=== PATIENT | female | born 1945 | race Caucasian/White ===

== ENCOUNTER 2017-02-10 08:41 | Outpatient (CLI) | payer MEDICARE, OTHER ==
[~2017-02-10] VITALS: Ht 167.6 cm; Wt 75.7 kg
[~2017-02-10 08:41] MED LIST: ASPI1TAB PO; GLUCTAB6 PO; IBUP100SUS PO; IBUPOTC PO; LISI5TAB PO; VITA100067 PO
[2017-02-10] MEDS ORDERED: PRAV40TA2 PO (09:23)
[2017-02-10] MEDS ORDERED: LIDOCAINE 2% INJ 100 MG/5 ML SDV (FOR ANES.) As Ordered ONE (09:50)
[2017-02-10] MEDS ORDERED: PROPOFOL 200 MG/20 ML VIAL As Ordered ONE ×2 (09:50→09:51)
--- NOTE | 2017-02-10 10:02 | ROOR ---
Patient Name: Juliet Gibbs Procedure Date: 02/10/2017 9:44 AM Date of : 1945 Age: 71 Room: [facility] Gender: Female Note Status: Finalized Procedure: Total Colonoscopy to Cecum Indications: Colon cancer screening in patient at increased risk: Colorectal cancer in mother, Last colonoscopy: 2011 Providers: Shaka Bailey MD Referring MD: NADIRA NDIAYE MD Requesting Provider: Medicines: Monitored Anesthesia Care Complications: No immediate complications. Procedure: Pre-Anesthesia Assessment: - The heart rate, respiratory rate, oxygen saturations, blood pressure, adequacy of pulmonary ventilation, and response to care were monitored throughout the procedure. The Colonoscope was introduced through the anus and advanced to the cecum, identified by appendiceal orifice and ileocecal valve. The colonoscopy was performed without difficulty. The patient tolerated the procedure well. The quality of the bowel preparation was excellent. Findings: The perianal and digital rectal examinations were normal. Non-bleeding internal hemorrhoids were found during retroflexion. The hemorrhoids were small and Grade I (internal hemorrhoids that do not prolapse). No other significant abnormalities were identified in a careful examination of the remainder of the colon. The exam was otherwise without abnormality on direct and retroflexion views. Impression: - Non-bleeding internal hemorrhoids. - The examination was otherwise normal on direct and retroflexion views. - No specimens collected. - The exam was otherwise normal to the cecum. Recommendation: - Patient has a contact number available for emergencies. The signs and symptoms of potential delayed complications were discussed with the patient. Return to normal activities tomorrow. Written discharge instructions were provided to the patient. - High fiber diet. - Discharge patient to home. - Continue present medications. - Repeat colonoscopy for symptoms only. - Return to referring physician. - The findings and recommendations were discussed with the patient's family. Shaka Bailey MD Shaka Bailey MD 02/10/2017 10:02:39 AM This report has been signed electronically. Number of Addenda: 0 Note Initiated On: 02/10/2017 9:44 AM Estimated Blood Loss: Estimated blood loss: none.
[2017-02-10 10:20] VITALS: BP 104/69
[2017-02-10] MEDS ORDERED: NS 1,000 ML IV ONE (10:30)
== END 2017-02-10 10:24 | disposition home or self-care (01) ==
LOC: M OPP 08:41
PROVIDERS: ATTEND Internal Medicine Gastroenterology
DX: Z12.11 Encounter for screening for malignant neoplasm of colon (principal); Z80.0 Family history of malignant neoplasm of digestive organs; K64.0 First degree hemorrhoids; I10 Essential (primary) hypertension; E78.5 Hyperlipidemia, unspecified; M19.90 Unspecified osteoarthritis, unspecified site; M54.9 Dorsalgia, unspecified; F41.9 Anxiety disorder, unspecified; Z78.0 Asymptomatic menopausal state; N39.3 Stress incontinence (female) (male); Z88.8 Allergy status to other drugs, medicaments and biological substances; Z88.5 Allergy status to narcotic agent; Z91.041 Radiographic dye allergy status; Z91.048 Other nonmedicinal substance allergy status; Z91.010 Allergy to peanuts; Z79.82 Long term (current) use of aspirin; Z79.899 Other long term (current) drug therapy; Z80.8 Family history of malignant neoplasm of other organs or systems; Z87.891 Personal history of nicotine dependence

== ENCOUNTER → 2017-03-05 | Outpatient (REF) | payer MEDICARE, OTHER ==
[~2017-03-05] MED LIST changes: +PRAV40TA2 PO
== END ==
LOC: M SFHCWAGY 08:49
PROVIDERS: ATTEND Nurse Practitioner Women's Health
DX: Z12.4 Encounter for screening for malignant neoplasm of cervix (principal); N88.8 Other specified noninflammatory disorders of cervix uteri
CPT/HCPCS: G0101; G0123

== ENCOUNTER → 2018-03-15 | Outpatient (REF) | payer MEDICARE, OTHER ==
[2018-03-17 14:22] LABS: HPV HYBRID CAPTURE II Negative (Negative)
== END ==
LOC: M SFHCWAGY 09:11
DX: Z12.4 Encounter for screening for malignant neoplasm of cervix (principal); Z86.19 Personal history of other infectious and parasitic diseases; Z98.890 Other specified postprocedural states
CPT/HCPCS: G0123

== ENCOUNTER 2019-02-19 18:33 | Emergency (ER) | payer MEDICARE, OTHER ==
[~2019-02-19] VITALS: Ht 167.6 cm; Wt 78.4 kg
[~2019-02-19 18:33] MED LIST changes: +IBUP100S44 PO; -IBUP100SUS PO
[2019-02-19 18:34] VITALS: BP 147/74
[2019-02-19] MEDS ORDERED: DERMABOND TOPICAL SKIN ADHESIVE TOP ONE (19:00)
--- NOTE | 2019-02-19 19:58 | REP ---
Right forearm: Two views. History: Injury in a fall. Findings: Two views of the right forearm show a subtle nondisplaced fracture of the radial head proximally. There is distortion of the anterior fat pad at the elbow consistent with hemarthrosis. No distal forearm fracture is seen. No ulnar fracture is appreciated. Impression: Proximal radial head fracture nondisplaced with evidence of positive fat pad sign at the elbow. Electronically Signed by Castro Cowan MD 02/19/2019 07:50 P
--- NOTE | 2019-02-19 20:01 | REPVR ---
PROCEDURE INFORMATION: Exam: CT Head Without Contrast Exam date and time: 02/19/2019 7:02 PM Clinical history: 73 years old, female; Injury or trauma; Fall; Initial encounter; Blunt trauma (contusions or hematomas); Consciousness not specified TECHNIQUE: Imaging protocol: Computed tomography of the head without contrast. Radiation optimization: All CT scans at this facility use at least one of these dose optimization techniques: automated exposure control; mA and/or kV adjustment per patient size (includes targeted exams where dose is matched to clinical indication); or iterative reconstruction. COMPARISON: CT Head without contrast 06/27/2013 12:10 PM FINDINGS: Brain: Global cerebral atrophy is consistent with patient's age. Decreased attenuation within the white matter tracts of both cerebral hemispheres is nonspecific but typically seen with small vessel disease/chronic white matter ischemic changes of aging. No intracranial hemorrhage or mass effect. Ventricles: Unremarkable. No ventriculomegaly. Bones/joints: Unremarkable. No acute fracture. Sinuses: Visualized sinuses are unremarkable. No fluid levels. Mastoid air cells: Visualized mastoid air cells are well aerated. Soft tissues: Unremarkable. IMPRESSION: No acute abnormality. Electronically signed by: Fili Feliciano On 02/19/2019 20:00:48 PM
== END 2019-02-19 20:34 | disposition home or self-care (01) ==
LOC: M ED 18:33
DX: S52.124A Nondisplaced fracture of head of right radius, initial encounter for closed fracture (principal); S01.81XA Laceration without foreign body of other part of head, initial encounter; W18.39XA Other fall on same level, initial encounter; Y92.410 Unspecified street and highway as the place of occurrence of the external cause; I10 Essential (primary) hypertension; Z79.899 Other long term (current) drug therapy; Z79.82 Long term (current) use of aspirin; Z88.5 Allergy status to narcotic agent; Z88.8 Allergy status to other drugs, medicaments and biological substances; Z91.018 Allergy to other foods; Z91.041 Radiographic dye allergy status; Z91.048 Other nonmedicinal substance allergy status

== ENCOUNTER → 2019-03-17 | Outpatient (REF) | payer MEDICARE, OTHER ==
[2019-03-21 14:07] LABS: HPV HYBRID CAPTURE II Negative (Negative)
== END ==
LOC: M SFHCWAGY 08:34
PROVIDERS: ATTEND Nurse Practitioner Women's Health
DX: Z12.4 Encounter for screening for malignant neoplasm of cervix (principal); Z98.890 Other specified postprocedural states; N95.8 Other specified menopausal and perimenopausal disorders
CPT/HCPCS: 87624; G0101; G0123

== ENCOUNTER → 2020-03-19 | Outpatient (REF) | payer MEDICARE, OTHER | LOC: M SFHCWAGY 10:04 | PROVIDERS: ATTEND Nurse Practitioner Women's Health | DX: Z12.4 Encounter for screening for malignant neoplasm of cervix (principal); N95.8 Other specified menopausal and perimenopausal disorders | CPT/HCPCS: 87624; G0101; G0123 ==

== ENCOUNTER → 2021-03-20 | Outpatient (REF) | payer MEDICARE, OTHER | LOC: M SFHCWAGY 13:02 | PROVIDERS: ATTEND Nurse Practitioner Women's Health | DX: Z12.4 Encounter for screening for malignant neoplasm of cervix (principal); N95.8 Other specified menopausal and perimenopausal disorders | CPT/HCPCS: G0101; G0123 ==

== ENCOUNTER → 2021-10-10 | Outpatient (REF) | payer MEDICARE, OTHER ==
[2021-10-10 15:44] LABS: ALBUMIN 4.1 GM/DL (3.2-5.2); BILIRUBIN,TOTAL 0.4 MG/DL (0.2-1.0); CALCIUM LEVEL 10.2 MG/DL (8.8-10.2); CREATININE FOR GFR 0.97 MG/DL (0.55-1.30); FREE T4 0.99 NG/DL (0.76-1.46); GLOMERULAR FILTRATION RATE 59.4 (>39); POTASSIUM SERUM 3.8 MEQ/L (3.5-5.1); THYROID STIMULATING HORMONE 2.28 uIU/ML (0.358-3.740); TOTAL PROTEIN 7.5 GM/DL (6.4-8.2)
== END ==
LOC: M SFHCADAM 07:58
PROVIDERS: ATTEND Family Medicine
DX: I11.9 Hypertensive heart disease without heart failure (principal); E78.5 Hyperlipidemia, unspecified

== ENCOUNTER → 2021-10-21 | Outpatient (REF) | payer MEDICARE, OTHER ==
[2021-10-21 13:43] LABS: CHOLESTEROL RISK RATIO 3.213 (<5)
== END ==
LOC: M SFHCADAM 07:57
PROVIDERS: ATTEND Family Medicine
DX: E78.5 Hyperlipidemia, unspecified (principal)

== ENCOUNTER → 2022-03-30 | Outpatient (REF) | payer MEDICARE, OTHER | LOC: M PLALAB 13:02 | PROVIDERS: ATTEND Nurse Practitioner Family | DX: Z12.4 Encounter for screening for malignant neoplasm of cervix (principal) | CPT/HCPCS: 87624; G0123 ==

== ENCOUNTER → 2022-08-11 | Outpatient (CLI) | payer MEDICARE, OTHER | LOC: M CARPUL 09:10 | PROVIDERS: ATTEND Physician Assistant | DX: I11.9 Hypertensive heart disease without heart failure (principal) ==

== ENCOUNTER → 2022-09-07 | Outpatient (CLI) | payer MEDICARE, OTHER | LOC: M RAD 12:00 | PROVIDERS: ATTEND Internal Medicine Cardiovascular Disease | DX: R09.89 Other specified symptoms and signs involving the circulatory and respiratory systems (principal) ==

== ENCOUNTER 2022-10-05 07:16 | Day surgery (SDC) | payer MEDICARE, OTHER ==
[~2022-10-05] VITALS: Ht 167.6 cm; Wt 74.8 kg
[~2022-10-05 07:16] MED LIST changes: +ECOT81TA5 PO; +LIDOCAINE 2% 100MG/5ML SDV (FOR ANES.) As Ordered ONE; +LISI10TA22 PO; +NS 1,000 ML IV ONE; +PRAV10TA3 PO; +REFR0.5D8 OP; +VITA100093 PO; +propofoL 200 MG/20 ML VIAL As Ordered ONE
[2022-10-05 09:20] VITALS: BP 106/56
== END 2022-10-05 09:23 | disposition home or self-care (01) ==
LOC: M OPP 07:16
PROVIDERS: ATTEND Internal Medicine Gastroenterology
DX: Z12.11 Encounter for screening for malignant neoplasm of colon (principal); Z80.0 Family history of malignant neoplasm of digestive organs; K64.0 First degree hemorrhoids; K57.30 Diverticulosis of large intestine without perforation or abscess without bleeding; I10 Essential (primary) hypertension; E78.5 Hyperlipidemia, unspecified; M19.90 Unspecified osteoarthritis, unspecified site; F41.9 Anxiety disorder, unspecified; Z88.5 Allergy status to narcotic agent; Z88.6 Allergy status to analgesic agent; Z88.8 Allergy status to other drugs, medicaments and biological substances; Z91.018 Allergy to other foods; Z91.041 Radiographic dye allergy status; Z91.09 Other allergy status, other than to drugs and biological substances; Z79.82 Long term (current) use of aspirin; Z79.899 Other long term (current) drug therapy

== ENCOUNTER → 2022-10-13 | Outpatient (REF) | payer MEDICARE, OTHER ==
[~2022-10-13] MED LIST changes: -LIDOCAINE 2% 100MG/5ML SDV (FOR ANES.) As Ordered ONE; -NS 1,000 ML IV ONE; -propofoL 200 MG/20 ML VIAL As Ordered ONE
[2022-10-13 13:50] LABS: HEMATOCRIT 46.3 % (36.0-47.0); HEMOGLOBIN 14.7 g/dl (12.0-15.5); MEAN CORPUSCULAR HEMOGLOBIN 30.4 pg (27.0-33.0); MEAN CORPUSCULAR HGB CONC 31.7 g/dl (32.0-36.5); MEAN CORPUSCULAR VOLUME 95.9 fl (80.0-96.0); PLATELET COUNT, AUTOMATED 274 10^3/uL (150-450); RED BLOOD COUNT 4.83 10^6/uL (4.00-5.40); WHITE BLOOD COUNT 8.8 10^3/uL (4.0-10.0)
[2022-10-13 14:04] LABS: ALKALINE PHOSPHATASE 64 U/L (46-116); ALT/SGPT < 9 U/L (7.0-40); AST/SGOT 14 U/L (<34); BILIRUBIN,TOTAL 0.7 MG/DL (0.3-1.2); BLOOD UREA NITROGEN 19 MG/DL (9-23); CARBON DIOXIDE LEVEL 28 MMOL/L (20-31); CHLORIDE LEVEL 104 MMOL/L (98-107); CHOLESTEROL LEVEL 189 MG/DL (<200); CHOLESTEROL RISK RATIO 3.09 (<5); GLOMERULAR FILTRATION RATE 57.2 (>39); GLUCOSE, FASTING 85 MG/DL (74-106); HDL CHOLESTEROL 61.1 MG/DL (>40); LDL CHOLESTEROL 104.3 MG/DL (<100); NON-HDL-C 127.9 MG/DL; POTASSIUM SERUM 4.4 MMOL/L (3.5-5.1); SODIUM LEVEL 140 MMOL/L (136-145); TOTAL PROTEIN 6.7 G/DL (5.7-8.2); TRIGLYCERIDES LEVEL 118 MG/DL (<150)
== END ==
LOC: M SFHCADAM 09:28
PROVIDERS: ATTEND Family Medicine
DX: I11.9 Hypertensive heart disease without heart failure (principal); E78.5 Hyperlipidemia, unspecified

== ENCOUNTER 2022-10-16 11:16 | Inpatient (IN) | payer MEDICARE, OTHER ==
[~2022-10-16] VITALS: Ht 167.6 cm; Wt 73.9 kg
[2022-10-16] MEDS ORDERED: IBUPROFEN 800 MG TAB PO ONE (12:40)
[2022-10-16 13:48] LABS: BASO % 0.2 % (0.0-1.0); EOS % 0.1 % (0.0-3.0); HEMATOCRIT 44.9 % (36.0-47.0); HEMOGLOBIN 14.7 g/dl (12.0-15.5); LYMPH # 0.9 10^3/uL (1.5-5.0); LYMPH % 5.4 % (24.0-44.0); MEAN CORPUSCULAR HEMOGLOBIN 30.5 pg (27.0-33.0); MEAN CORPUSCULAR HGB CONC 32.7 g/dl (32.0-36.5); MEAN CORPUSCULAR VOLUME 93.2 fl (80.0-96.0); MONO # 0.7 10^3/uL (0.0-0.8); MONO % 4.2 % (2.0-8.0); NEUTROPHILS # 14.8 10^3/uL (1.5-8.5); NEUTROPHILS % 89.6 % (36.0-66.0); PLATELET COUNT, AUTOMATED 233 10^3/uL (150-450); RED BLOOD COUNT 4.82 10^6/uL (4.00-5.40); WHITE BLOOD COUNT 16.6 10^3/uL (4.0-10.0)
[2022-10-16] MEDS ORDERED: HOME MED LIST COMPLETE! XX SCH (14:40)
[2022-10-16] MEDS ORDERED: MORPHINE 2 MG/ML 1ML VIAL IV PRN (15:10)
[2022-10-16] MEDS: NS 1,000 ML IV SCH ×2 (15:58→18:41)
[2022-10-16 17:30] VITALS: BP 148/74; TEMP 98.4; O2SAT 96
[2022-10-16 20:33] VITALS: BP 162/81; TEMP 98.6; O2SAT 97
[2022-10-16] MEDS ORDERED: ACETAMINOPHEN 500 MG TAB PO ONE (21:40)
[2022-10-16 21:50] VITALS: BP 162/90
[2022-10-16 23:02] VITALS: BP 152/72
[2022-10-17] VITALS (19 sets, daily range): BP systolic 139–158; BP diastolic 71–85; TEMP 97.9–101; O2SAT 90–96
[2022-10-17] MEDS: KETOROLAC 30 MG/ML 1ML VIAL IV PRN ×2 (01:15→15:31)
[2022-10-17] MEDS: NS 1,000 ML IV SCH ×2 (04:47→20:36)
[2022-10-17 05:44] LABS: BASO # 0.1 10^3/uL (0.0-0.2); BASO % 0.8 % (0.0-1.0); EOS # 0.3 10^3/uL (0.0-0.5); EOS % 2.6 % (0.0-3.0); HEMATOCRIT 40.4 % (36.0-47.0); HEMOGLOBIN 13.5 g/dl (12.0-15.5); LYMPH # 1.6 10^3/uL (1.5-5.0); LYMPH % 15.9 % (24.0-44.0); MEAN CORPUSCULAR HEMOGLOBIN 30.7 pg (27.0-33.0); MEAN CORPUSCULAR HGB CONC 33.4 g/dl (32.0-36.5); MEAN CORPUSCULAR VOLUME 91.8 fl (80.0-96.0); MONO # 0.8 10^3/uL (0.0-0.8); MONO % 7.6 % (2.0-8.0); NEUTROPHILS # 7.3 10^3/uL (1.5-8.5); NEUTROPHILS % 72.6 % (36.0-66.0); PLATELET COUNT, AUTOMATED 209 10^3/uL (150-450)
[2022-10-17 05:54] LABS: INR 1.02; PROTHROMBIN TIME 13.6 SECONDS (12.5-14.5)
[2022-10-17 05:55] LABS: PARTIAL THROMBOPLASTIN TIME 28.4 SECONDS (24.8-34.2)
[2022-10-17 06:12] LABS: BLOOD UREA NITROGEN 16 MG/DL (9-23); CALCIUM LEVEL 8.3 MG/DL (8.3-10.6); CARBON DIOXIDE LEVEL 26 MMOL/L (20-31); CHLORIDE LEVEL 109 MMOL/L (98-107); CREATININE FOR GFR 0.88 MG/DL (0.55-1.30); GLOMERULAR FILTRATION RATE > 60.0 (>39); GLUCOSE, FASTING 97 MG/DL (74-106); POTASSIUM SERUM 3.8 MMOL/L (3.5-5.1); SODIUM LEVEL 140 MMOL/L (136-145)
[2022-10-17] MEDS ORDERED: ceFAZolin 2 GM/D5W 50 ML IV BAG As Ordered ONE (08:19)
[2022-10-17] MEDS ORDERED: ONDANSETRON 4MG 2ML VIAL As Ordered ONE (09:01)
[2022-10-17] MEDS ORDERED: MIDAZOLAM INJ 2MG/2ML VIAL As Ordered ONE (09:01)
[2022-10-17] MEDS ORDERED: KETOROLAC 60MG 2ML VIAL As Ordered ONE (09:01)
[2022-10-17] MEDS ORDERED: propofoL 200 MG/20 ML VIAL As Ordered ONE (09:01)
[2022-10-17] MEDS ORDERED: ACETAMINOPHEN 1000MG 100ML IV BAG As Ordered ONE (09:01)
[2022-10-17] MEDS ORDERED: LR 1,000 ML IV SCH (09:10)
[2022-10-17] MEDS ORDERED: ONDANSETRON 4MG 2ML VIAL IV PRN (09:10)
[2022-10-17] MEDS ORDERED: traMADol 50 MG TAB PO ONE (09:10)
[2022-10-17] MEDS ORDERED: MORPHINE 2 MG/ML 1ML VIAL IV PRN (09:10)
[2022-10-17] MEDS: ceFAZolin SOD 2 GM in IV 1 EA IV SCH ×2 (15:31→23:21)
[2022-10-17] MEDS: ACETAMINOPHEN TAB 650MG DOSE (2X325MG) PO PRN (22:07)
[2022-10-18] VITALS (16 sets, daily range): BP systolic 125–148; BP diastolic 62–73; TEMP 98.4–100.1; O2SAT 91–100
[2022-10-18 06:54] LABS: BASO # 0.1 10^3/uL (0.0-0.2); BASO % 0.7 % (0.0-1.0); EOS # 0.4 10^3/uL (0.0-0.5); EOS % 3.7 % (0.0-3.0); HEMATOCRIT 37.4 % (36.0-47.0); LYMPH # 1.2 10^3/uL (1.5-5.0); LYMPH % 10.8 % (24.0-44.0); MEAN CORPUSCULAR HEMOGLOBIN 30.5 pg (27.0-33.0); MEAN CORPUSCULAR HGB CONC 32.1 g/dl (32.0-36.5); MEAN CORPUSCULAR VOLUME 95.2 fl (80.0-96.0); MONO # 0.6 10^3/uL (0.0-0.8); MONO % 5.6 % (2.0-8.0); NEUTROPHILS # 9.1 10^3/uL (1.5-8.5); NEUTROPHILS % 78.6 % (36.0-66.0); PLATELET COUNT, AUTOMATED 160 10^3/uL (150-450); RED BLOOD COUNT 3.93 10^6/uL (4.00-5.40); WHITE BLOOD COUNT 11.5 10^3/uL (4.0-10.0)
[2022-10-18 07:26] LABS: BLOOD UREA NITROGEN 13 MG/DL (9-23); CALCIUM LEVEL 8.2 MG/DL (8.3-10.6); CARBON DIOXIDE LEVEL 26 MMOL/L (20-31); CHLORIDE LEVEL 109 MMOL/L (98-107); CREATININE FOR GFR 0.83 MG/DL (0.55-1.30); GLOMERULAR FILTRATION RATE > 60.0 (>39); GLUCOSE, FASTING 92 MG/DL (74-106); POTASSIUM SERUM 3.8 MMOL/L (3.5-5.1); SODIUM LEVEL 142 MMOL/L (136-145)
[2022-10-18] MEDS ORDERED: ALBUTEROL SULFATE 2.5MG/0.5ML INH NEB SOLN NEB PRN (07:45)
[2022-10-18] MEDS ORDERED: FUROSEMIDE 40MG/4ML VIAL IV ONE (08:00)
[2022-10-18] MEDS: ASPIRIN 81MG ENTERIC TABLET PO SCH (08:48)
[2022-10-18] MEDS: PRAVASTATIN 10 MG TAB PO SCH (08:49)
[2022-10-18] MEDS: ENOXAPARIN 40MG/0.4ML SYRINGE (J1650 PER 10MG) SC SCH (08:49)
[2022-10-18] MEDS: ACETAMINOPHEN TAB 650MG DOSE (2X325MG) PO PRN ×2 (10:19→18:20)
[2022-10-19 06:00] VITALS: BP 126/69; TEMP 99.5; O2SAT 93
[2022-10-19 06:08] LABS: BASO # 0.1 10^3/uL (0.0-0.2); BASO % 0.7 % (0.0-1.0); EOS # 0.5 10^3/uL (0.0-0.5); EOS % 5.5 % (0.0-3.0); HEMATOCRIT 37.5 % (36.0-47.0); HEMOGLOBIN 12.5 g/dl (12.0-15.5); LYMPH # 1.6 10^3/uL (1.5-5.0); LYMPH % 17.1 % (24.0-44.0); MEAN CORPUSCULAR HGB CONC 33.3 g/dl (32.0-36.5); MEAN CORPUSCULAR VOLUME 93.1 fl (80.0-96.0); MONO # 0.7 10^3/uL (0.0-0.8); MONO % 7.5 % (2.0-8.0); NEUTROPHILS # 6.6 10^3/uL (1.5-8.5); NEUTROPHILS % 68.9 % (36.0-66.0); PLATELET COUNT, AUTOMATED 174 10^3/uL (150-450); RED BLOOD COUNT 4.03 10^6/uL (4.00-5.40); WHITE BLOOD COUNT 9.5 10^3/uL (4.0-10.0)
[2022-10-19 06:41] LABS: BLOOD UREA NITROGEN 17 MG/DL (9-23); CALCIUM LEVEL 9.2 MG/DL (8.3-10.6); CARBON DIOXIDE LEVEL 28 MMOL/L (20-31); CHLORIDE LEVEL 105 MMOL/L (98-107); CREATININE FOR GFR 0.83 MG/DL (0.55-1.30); GLOMERULAR FILTRATION RATE > 60.0 (>39); GLUCOSE, FASTING 93 MG/DL (74-106); POTASSIUM SERUM 3.8 MMOL/L (3.5-5.1); SODIUM LEVEL 140 MMOL/L (136-145)
[2022-10-19] MEDS: ENOXAPARIN 40MG/0.4ML SYRINGE (J1650 PER 10MG) SC SCH (09:34)
[2022-10-19] MEDS: PRAVASTATIN 10 MG TAB PO SCH (09:35)
[2022-10-19] MEDS: ASPIRIN 81MG ENTERIC TABLET PO SCH (09:35)
[2022-10-19] MEDS: ACETAMINOPHEN TAB 650MG DOSE (2X325MG) PO PRN ×2 (10:09→21:21)
[2022-10-19 14:00] VITALS: BP 148/81; TEMP 99.5; O2SAT 91
[2022-10-19 21:00] VITALS: BP 144/85; TEMP 99.5; O2SAT 90
[2022-10-19 23:58] VITALS: O2SAT 91
[2022-10-20 05:10] VITALS: BP 154/78; TEMP 98.7; O2SAT 91
[2022-10-20 06:12] LABS: BASO # 0.1 10^3/uL (0.0-0.2); BASO % 0.9 % (0.0-1.0); EOS # 0.5 10^3/uL (0.0-0.5); EOS % 6.3 % (0.0-3.0); HEMATOCRIT 37.4 % (36.0-47.0); HEMOGLOBIN 12.4 g/dl (12.0-15.5); LYMPH # 1.6 10^3/uL (1.5-5.0); LYMPH % 20.1 % (24.0-44.0); MEAN CORPUSCULAR HEMOGLOBIN 30.8 pg (27.0-33.0); MEAN CORPUSCULAR HGB CONC 33.2 g/dl (32.0-36.5); MEAN CORPUSCULAR VOLUME 92.8 fl (80.0-96.0); MONO # 0.7 10^3/uL (0.0-0.8); MONO % 9.3 % (2.0-8.0); NEUTROPHILS # 4.9 10^3/uL (1.5-8.5); NEUTROPHILS % 62.8 % (36.0-66.0); PLATELET COUNT, AUTOMATED 195 10^3/uL (150-450); RED BLOOD COUNT 4.03 10^6/uL (4.00-5.40); WHITE BLOOD COUNT 7.8 10^3/uL (4.0-10.0)
[2022-10-20 06:36] LABS: BLOOD UREA NITROGEN 14 MG/DL (9-23); CALCIUM LEVEL 8.7 MG/DL (8.3-10.6); CARBON DIOXIDE LEVEL 28 MMOL/L (20-31); CHLORIDE LEVEL 106 MMOL/L (98-107); CREATININE FOR GFR 0.75 MG/DL (0.55-1.30); GLOMERULAR FILTRATION RATE > 60.0 (>39); GLUCOSE, FASTING 92 MG/DL (74-106); POTASSIUM SERUM 3.9 MMOL/L (3.5-5.1); SODIUM LEVEL 140 MMOL/L (136-145)
[2022-10-20] MEDS ORDERED: ECOT81TA5 PO (08:27)
[2022-10-20] MEDS ORDERED: IBUP-1022 PO (08:27)
[2022-10-20] MEDS ORDERED: ACET500P3 PO (08:27)
[2022-10-20] MEDS: PRAVASTATIN 10 MG TAB PO SCH (09:39)
[2022-10-20] MEDS: ASPIRIN 81MG ENTERIC TABLET PO SCH (09:39)
[2022-10-20 09:40] VITALS: BP 164/87
[2022-10-20] MEDS: ENOXAPARIN 40MG/0.4ML SYRINGE (J1650 PER 10MG) SC SCH (09:41)
[2022-10-20 14:00] VITALS: BP 128/60; TEMP 99.1; O2SAT 90
== END 2022-10-20 16:00 | disposition home health service (06) | DRG 481 ==
LOC: M ED 11:16 → EDBD 11:16 → M ED INP 15:09 → ENRESERV 16:26 → M MS5PR 17:05
PROVIDERS: ADMIT Internal Medicine Nephrology; ATTEND Internal Medicine Nephrology
PROC: 0QS734Z Reposition Left Upper Femur with Internal Fixation Device, Percutaneous Approach (ICD-10-PCS; principal; 2022-10-17 08:30)
DX: S72.002A Fracture of unspecified part of neck of left femur, initial encounter for closed fracture (principal); J98.11 Atelectasis; I10 Essential (primary) hypertension; I35.0 Nonrheumatic aortic (valve) stenosis; M54.10 Radiculopathy, site unspecified; I45.10 Unspecified right bundle-branch block; K64.8 Other hemorrhoids; K57.30 Diverticulosis of large intestine without perforation or abscess without bleeding; W10.9XXA Fall (on) (from) unspecified stairs and steps, initial encounter; Y92.009 Unspecified place in unspecified non-institutional (private) residence as the place of occurrence of the external cause; Z91.041 Radiographic dye allergy status; Z88.8 Allergy status to other drugs, medicaments and biological substances; Z79.82 Long term (current) use of aspirin; Z79.899 Other long term (current) drug therapy

== ENCOUNTER → 2022-10-22 | Outpatient (CLI) | payer MEDICARE, OTHER ==
[~2022-10-22] MED LIST changes: +ACET500P3 PO; +IBUP-1022 PO
== END ==
LOC: M ADAMS 13:54
PROVIDERS: ATTEND Physician Assistant
DX: R09.02 Hypoxemia (principal); I70.0 Atherosclerosis of aorta

== ENCOUNTER → 2022-10-22 | Outpatient (REF) | payer MEDICARE, OTHER ==
[2022-10-22 16:36] LABS: BASO # 0.1 10^3/uL (0.0-0.2); BASO % 1.1 % (0.0-1.0); EOS # 0.2 10^3/uL (0.0-0.5); EOS % 2.7 % (0.0-3.0); HEMATOCRIT 39.6 % (36.0-47.0); HEMOGLOBIN 13.2 g/dl (12.0-15.5); LYMPH # 1.8 10^3/uL (1.5-5.0); LYMPH % 21.2 % (24.0-44.0); MEAN CORPUSCULAR HEMOGLOBIN 31.2 pg (27.0-33.0); MEAN CORPUSCULAR HGB CONC 33.3 g/dl (32.0-36.5); MEAN CORPUSCULAR VOLUME 93.6 fl (80.0-96.0); MONO # 0.8 10^3/uL (0.0-0.8); MONO % 9.7 % (2.0-8.0); NEUTROPHILS # 5.5 10^3/uL (1.5-8.5); NEUTROPHILS % 64.7 % (36.0-66.0); PLATELET COUNT, AUTOMATED 274 10^3/uL (150-450); RED BLOOD COUNT 4.23 10^6/uL (4.00-5.40); WHITE BLOOD COUNT 8.5 10^3/uL (4.0-10.0)
[2022-10-22 16:47] LABS: BLOOD UREA NITROGEN 26 MG/DL (9-23); CALCIUM LEVEL 9.8 MG/DL (8.3-10.6); CARBON DIOXIDE LEVEL 30 MMOL/L (20-31); CHLORIDE LEVEL 104 MMOL/L (98-107); CREATININE FOR GFR 0.87 MG/DL (0.55-1.30); GLOMERULAR FILTRATION RATE > 60.0 (>39); GLUCOSE, FASTING 86 MG/DL (74-106); POTASSIUM SERUM 4.6 MMOL/L (3.5-5.1); SODIUM LEVEL 139 MMOL/L (136-145)
== END ==
LOC: M SFHCADAM 13:51
PROVIDERS: ATTEND Physician Assistant
DX: R09.02 Hypoxemia (principal)

== ENCOUNTER → 2022-10-27 | Outpatient (CLI) | payer MEDICARE, OTHER ==
[~2022-10-27] MED LIST changes: +ISOVUE-370 76% 100ML VIAL As Ordered ONE
== END ==
LOC: M RAD 12:47
PROVIDERS: ATTEND Physician Assistant
DX: R06.02 Shortness of breath (principal)

== ENCOUNTER → 2022-11-04 | Outpatient (CLI) | payer MEDICARE, OTHER ==
[~2022-11-04] MED LIST changes: -ISOVUE-370 76% 100ML VIAL As Ordered ONE
== END ==
LOC: M SOG 08:46
PROVIDERS: ATTEND Orthopaedic Surgery
DX: M25.552 Pain in left hip (principal); M85.852 Other specified disorders of bone density and structure, left thigh

== ENCOUNTER → 2022-11-11 | Outpatient (REF) | payer MEDICARE, OTHER ==
[2022-11-11 16:07] LABS: BASO % 0.5 % (0.0-1.0); EOS # 0.2 10^3/uL (0.0-0.5); HEMATOCRIT 45.1 % (36.0-47.0); HEMOGLOBIN 14.3 g/dl (12.0-15.5); LYMPH # 2.1 10^3/uL (1.5-5.0); LYMPH % 24.2 % (24.0-44.0); MEAN CORPUSCULAR HEMOGLOBIN 30.4 pg (27.0-33.0); MEAN CORPUSCULAR HGB CONC 31.7 g/dl (32.0-36.5); MONO # 0.8 10^3/uL (0.0-0.8); NEUTROPHILS # 5.5 10^3/uL (1.5-8.5); NEUTROPHILS % 63.8 % (36.0-66.0); PLATELET COUNT, AUTOMATED 294 10^3/uL (150-450); WHITE BLOOD COUNT 8.6 10^3/uL (4.0-10.0)
[2022-11-11 16:35] LABS: C REACTIVE PROTEIN QUANTITATIV < 0.40 MG/DL (<1.0)
[2022-11-11 16:37] LABS: BLOOD UREA NITROGEN 25 MG/DL (9-23); CALCIUM LEVEL 9.5 MG/DL (8.3-10.6); CARBON DIOXIDE LEVEL 32 MMOL/L (20-31); CHLORIDE LEVEL 102 MMOL/L (98-107); CREATININE FOR GFR 0.82 MG/DL (0.55-1.30); GLOMERULAR FILTRATION RATE > 60.0 (>39); GLUCOSE, FASTING 79 MG/DL (74-106); POTASSIUM SERUM 4.9 MMOL/L (3.5-5.1); SODIUM LEVEL 139 MMOL/L (136-145)
[2022-11-11 16:39] LABS: ERYTHROCYTE SEDIMENTATION RATE 11 mm/hr (0-30)
== END ==
LOC: M SFHCADAM 11:49
PROVIDERS: ATTEND Physician Assistant
DX: R53.83 Other fatigue (principal)

== ENCOUNTER → 2022-12-07 | Outpatient (CLI) | payer MEDICARE, OTHER | LOC: M SOG 07:50 | PROVIDERS: ATTEND Orthopaedic Surgery | DX: S72.002D Fracture of unspecified part of neck of left femur, subsequent encounter for closed fracture with routine healing (principal) ==

== ENCOUNTER → 2023-01-13 | Outpatient (CLI) | payer MEDICARE, OTHER | LOC: M SOG 08:00 | PROVIDERS: ATTEND Orthopaedic Surgery | DX: S72.002A Fracture of unspecified part of neck of left femur, initial encounter for closed fracture (principal); Y93.9 Activity, unspecified; Y92.9 Unspecified place or not applicable ==

== ENCOUNTER → 2023-02-17 | Outpatient (CLI) | payer MEDICARE, OTHER | LOC: M SOG 08:42 | PROVIDERS: ATTEND Orthopaedic Surgery | DX: S72.002D Fracture of unspecified part of neck of left femur, subsequent encounter for closed fracture with routine healing (principal); M25.562 Pain in left knee; W18.30XD Fall on same level, unspecified, subsequent encounter ==

== ENCOUNTER → 2023-03-31 | Outpatient (CLI) | payer MEDICARE, OTHER | LOC: M WHC 07:58 | PROVIDERS: ATTEND Family Medicine | DX: Z01.419 Encounter for gynecological examination (general) (routine) without abnormal findings (principal); M85.851 Other specified disorders of bone density and structure, right thigh; Z13.820 Encounter for screening for osteoporosis; N81.10 Cystocele, unspecified; N95.1 Menopausal and female climacteric states; R29.6 Repeated falls; Z79.899 Other long term (current) drug therapy; Z91.048 Other nonmedicinal substance allergy status; Z88.5 Allergy status to narcotic agent; Z80.0 Family history of malignant neoplasm of digestive organs; Z80.8 Family history of malignant neoplasm of other organs or systems | CPT/HCPCS: 77080; 87624; G0101; G0123 ==

== ENCOUNTER → 2023-03-31 | Outpatient (REF) | payer MEDICARE, OTHER | LOC: M SFHCWAGY 13:04 | PROVIDERS: ATTEND Nurse Practitioner Family | DX: Z12.4 Encounter for screening for malignant neoplasm of cervix (principal) | CPT/HCPCS: 87624; G0123 ==

== ENCOUNTER → 2023-05-28 | Outpatient (CLI) | payer MEDICARE, OTHER | LOC: M PLAIMG 10:56 | PROVIDERS: ATTEND Orthopaedic Surgery | DX: M25.552 Pain in left hip (principal) ==

== ENCOUNTER → 2023-09-16 | Outpatient (REF) | payer MEDICARE, OTHER ==
[2023-09-16 14:21] LABS: HEMATOCRIT 45.7 % (36.0-47.0); HEMOGLOBIN 14.6 g/dl (12.0-15.5); MEAN CORPUSCULAR HEMOGLOBIN 30.4 pg (27.0-33.0); MEAN CORPUSCULAR HGB CONC 31.9 g/dl (32.0-36.5); PLATELET COUNT, AUTOMATED 273 10^3/uL (150-450); RED BLOOD COUNT 4.81 10^6/uL (4.00-5.40); WHITE BLOOD COUNT 7.6 10^3/uL (4.0-10.0)
[2023-09-16 14:42] LABS: HEMOGLOBIN A1c 5.6 % (4.0-6.0)
[2023-09-16 14:49] LABS: ALBUMIN 3.7 G/DL (3.2-5.2); ALKALINE PHOSPHATASE 68 U/L (46-116); ALT/SGPT 12 U/L (7.0-40); AST/SGOT 22 U/L (<34); BILIRUBIN,TOTAL 0.6 MG/DL (0.3-1.2); BLOOD UREA NITROGEN 22 MG/DL (9-23); CALCIUM LEVEL 9.5 MG/DL (8.3-10.6); CARBON DIOXIDE LEVEL 31 MMOL/L (20-31); CHLORIDE LEVEL 105 MMOL/L (98-107); CHOLESTEROL LEVEL 198 MG/DL (<200); CHOLESTEROL RISK RATIO 3.63 (<5); CREATININE FOR GFR 0.88 MG/DL (0.55-1.30); GLOMERULAR FILTRATION RATE > 60.0 (>39); GLUCOSE, FASTING 82 MG/DL (74-106); HDL CHOLESTEROL 54.4 MG/DL (>40); LDL CHOLESTEROL 112.4 MG/DL (<100); NON-HDL-C 143.6 MG/DL; POTASSIUM SERUM 4.5 MMOL/L (3.5-5.1); SODIUM LEVEL 142 MMOL/L (136-145); TOTAL PROTEIN 6.6 G/DL (5.7-8.2); TRIGLYCERIDES LEVEL 156 MG/DL (<150)
== END ==
LOC: M SFHCADAM 07:56
PROVIDERS: ATTEND Family Medicine
DX: E78.5 Hyperlipidemia, unspecified (principal); H53.9 Unspecified visual disturbance; Z13.1 Encounter for screening for diabetes mellitus

== ENCOUNTER → 2024-03-24 | Outpatient (REF) | payer MEDICARE, OTHER | LOC: M SFHCADAM 08:43 | PROVIDERS: ATTEND Family Medicine | DX: M81.0 Age-related osteoporosis without current pathological fracture (principal); Z71.1 Person with feared health complaint in whom no diagnosis is made ==

== ENCOUNTER → 2024-05-25 | Outpatient (REF) | payer MEDICARE, OTHER ==
[2024-05-27 19:51] LABS: HPV APTIMA Not Detected (Not Detected)
== END ==
LOC: M SFHCWAGY 13:58
PROVIDERS: ATTEND Nurse Practitioner Family
DX: Z12.4 Encounter for screening for malignant neoplasm of cervix (principal); N95.2 Postmenopausal atrophic vaginitis
CPT/HCPCS: 87624; G0123

== ENCOUNTER → 2024-11-09 | Outpatient (CLI) | payer MEDICARE, OTHER ==
[~2024-11-09] MED LIST changes: -PRAV10TA3 PO; +PRAV10TA43 PO; -PRAV40TA2 PO; +PRAV40TA85 PO
[2024-11-09 10:32] LABS: PLATELET COUNT, AUTOMATED 267 10^3/uL (150-450)
[2024-11-09 10:47] LABS: ALT/SGPT < 9 U/L (7.0-40); AST/SGOT 18 U/L (<34); CALCIUM LEVEL 9.4 MG/DL (8.3-10.6); CARBON DIOXIDE LEVEL 29 MMOL/L (20-31); CHLORIDE LEVEL 103 MMOL/L (98-107); CREATININE FOR GFR 0.96 MG/DL (0.55-1.30); FREE T4 1.18 NG/DL (0.89-1.76); GLOMERULAR FILTRATION RATE 60.2 (>39); POTASSIUM SERUM 4.3 MMOL/L (3.5-5.1); SODIUM LEVEL 142 MMOL/L (136-145); VITAMIN B12 LEVEL 622 PG/ML (211-911)
[2024-11-09 10:48] LABS: TOTAL 25(OH) VITAMIN D 59.6 NG/ML (20.0-100.0)
== END ==
LOC: M PLALAB 07:22
PROVIDERS: ATTEND Family Medicine
DX: M81.0 Age-related osteoporosis without current pathological fracture (principal); Z71.1 Person with feared health complaint in whom no diagnosis is made; Z79.899 Other long term (current) drug therapy

== ENCOUNTER → 2024-11-27 | Outpatient (REF) | payer MEDICARE, OTHER ==
[2024-11-27 13:57] LABS: CHOLESTEROL LEVEL 182.0 MG/DL (<200); CHOLESTEROL RISK RATIO 3.25 (<5); LDL CHOLESTEROL 99.7 MG/DL (<100); NON-HDL-C 126.1 MG/DL; TRIGLYCERIDES LEVEL 132.0 MG/DL (<150)
== END ==
LOC: M SFHCADAM 07:47
PROVIDERS: ATTEND Family Medicine
DX: E78.5 Hyperlipidemia, unspecified (principal)